=== PATIENT | female | born 1930 | race Caucasian/White ===

== ENCOUNTER 2016-11-20 13:18 | Emergency (ER) | payer MEDICARE, OTHER ==
[~2016-11-20] VITALS: Ht 172.7 cm; Wt 67.3 kg
[~2016-11-20 13:18] MED LIST: AMLO5TAB2 PO; ASCO-294 PO; BETA15CR38 TP; CALC500T9 PO; CHOL200047 PO; CIPR-231 PO; CYAN10008 PO; DARI15TA PO; DEXT1DRO8 BOTH_EYES; DICY20TA10 PO; HYDR-4150 PO; LEVE500T3 PO; LEVO50TA6 PO; LOM PO; LOPE2CAP PO; LOSA50TA37 PO; MOME17SP NS; MULT-666 PO; NEOM1OIN6 TP; OMEG-38 PO; PANT40TA2 PO; PRV40T PO; PSYL3.4P5 PO; WOOL454C TP
[2016-11-20 13:26] VITALS: BP 151/50; PULSE 85; RESP 16; O2SAT 95
--- NOTE | 2016-11-20 13:40 | ED.REPORT ---
HPI-Trauma Minor / Fall Date of Service Nov 20, 2016 ED Provider: History of Present Illness: sent from urgent care, fell on friday evening. unsure if she hit head, unwitnessed fall. now with increasing head pain, no nausea, dizzy this am. primary care is lisa on [address] is living independent at present hx of stroke 2010 left side Nursing Notes Stated Complaint: GLF,HIT HEAD Chief Complaint: General Complaint Nursing Notes Reviewed: Yes Allergies: Coded Allergies: Sulfa (Sulfonamide Antibiotics) (Verified Allergy, Unknown, 11/07/14) Scheduled Amlodipine (Amlodipine) 5 Mg Tablet 5 MG PO DAILY Ascorbate Calcium (Vitamin C) 500 Mg Tablet 500 MG PO DAILY Betamethasone/Propylene Glyc (Betamethasone Dp Aug 0.05% Crm) 15 Gm Cream..g. 15 GM TP BID Calcium Carbonate (Tums) 500 Mg Tab.chew 500 MG PO QAM Cholecalciferol (Vitamin D3) (Vitamin D3) 2,000 Unit Capsule 2,000 UNIT PO DAILY Ciprofloxacin (Cipro) 500 Mg Tablet 500 MG PO BID Cyanocobalamin (Vitamin B-12) (Vitamin B-12) 1,000 Mcg Tablet 1,000 MCG PO DAILY Darifenacin ER (Enablex) 15 Mg Tab.er.12h 15 MG PO DAILY Dicyclomine (Dicyclomine) 20 Mg Tablet 20 MG PO QID Hydrocodone/Acetaminophen (Flushing 5-325 Tablet) 1 Each Tablet 1-2 EACH PO Q4-6H Lanolin Alcohol/Mo/W.pet/Bowman (Eucerin Creme) 454 Gm Cream..g. 454 GM TP DAILY Levetiracetam (Levetiracetam) 500 Mg Tablet 500 MG PO BID Levothyroxine (Levothyroxine) 50 Mcg Tablet 50 MCG PO DAILY Losartan Potassium (Losartan Potassium) 50 Mg Tablet 50 MG PO DAILY Mometasone Furoate (Nasonex) 17 Gm [place].pump 1 SPRAY NS NOON, HS Multivitamin (Once Daily) 1 Each Tablet 1 EACH PO DAILY Neomy Sulf/Bacitrac Zn/Poly (Neosporin Ointment Packet) 1 Each Oint.pack 1 EACH TP TID [place]-3/Dha/Epa/Fish Oil (Fish Oil 1,000 mg Softgel) 1 Each Capsule 1 EACH PO DAILY Pantoprazole DR (Protonix) 40 Mg Tablet 40 MG PO DAILY Pravastatin (Pravachol) 40 Mg Tab 40 MG PO HS Psyllium Husk/Aspartame (Metamucil Fiber Singles Packet) 3.4 Gm Powd.pack 3.4 GM PO BID Scheduled PRN Dextran 70/Hypromellose/Pf (Artificial Tears Drops) 1 Each Droperette 1 DROP BOTH_EYES QID PRN PRN prn Diphenoxylate/Atropine (Diphenoxylate-Atrop 2.5-0.025) 2.5 Mg Tablet 2.5 MG PO Q6 PRN PRN For Diarrhea or Loose Stool Loperamide (Loperamide) 2 Mg Capsule 2 MG PO Q4H PRN PRN For Diarrhea or Loose Stool General Time Seen by MD: 13:40 Chief Complaint Fall Hx Obtained From: Patient Onset Occurred: 3 days ago Past Medical History Past Medical History Notes: PCP Dr. Fleming Stable meningioma Chronic sinusitis Past Medical History Recent admit 06/12/2014 for fall Urinary incontinence Reports: Hypertension, Stroke Past Surgical History Bunion surgery x2 Rotator cuff surgery right shoulder Reports: Appendectomy, Cataract surgery, Tonsillectomy Smoking History Former Smoker Social History Alcohol Use: Denies alcohol use Other Social History: [facility] Local [facility] Occupation lives at [facility] 11/20/2016 Ambulatory Status Independent Review of Systems Basic Review of Systems Cardiovascular: No chest pain, No dyspnea on exertion, No orthopnea, No parox noct dyspnea, No palpitations Hematologic: No bleeding, No bruising Psychiatric: Normal thought content Physical Exam Initial Vital Signs Vital Signs (First) Date Time Temp Pulse Resp B/P Pulse Ox O2 Delivery O2 Flow Rate FiO2 11/20/16 13:26 36.0 85 16 151/50 95 Room Air Initial VS: Reviewed, Vital signs normal Head / Eyes: Atraumatic, Normocephalic, PERRL ENT: Mucous membranes moist, Conjunctiva normal, No scleral icterus Respiratory: Breath sounds normal, Clear to auscultation, No respiratory distress Cardiovascular: Regular rate & rhythm, Heart sounds normal, Intact distal pulses Abdomen / GI: Soft, Non-tender, No guarding, No rebound, No distention Back: No CVA tenderness Lymphatic: No lymphadenopathy Extremities: Vascular intact, Neuro intact, No swelling, No tenderness Skin: Warm, Dry, No cyanosis Neurologic: Alert, Oriented, Nonfocal Psychiatric: Mood/affect normal, Behavior normal, Normal thought content General/Constitutional: Awake, Alert, No acute distress, Well appearing, Well developed, Well hydrated, Well nourished, Cooperative, Not toxic appearing Neck: Atraumatic, Supple, No meningismus, Full range of motion Head / Eyes: Atraumatic, Normocephalic, PERRL, EOMI ENT: Atraumatic, Airway patent, Mucous membranes moist, Pharynx NL Respiratory / Chest: Atraumatic, Breath sounds NL, Breath sounds = bilat, No respiratory distress Cardiovascular: Heart rate NL, Regular rhythm, Heart sounds NL, No gallop Abdomen: Atraumatic, Soft, Non-tender, McBurney's non-tender Back: Atraumatic, Inspection NL, Full range of motion Interpretation & Diagnostics Lab Results Interpretation Result Diagram: 11/20/16 1400 11/20/16 1400 Test 11/20/16 14:00 White Blood Count 4.9th/mm3 (3.8-10.1) Red Blood Count 4.47mil/mm3 (3.90-5.20) Hemoglobin 13.4g/dL (12.0-15.6) Hematocrit 40.1% (35.0-46.0) Mean Corpuscular Volume 89.7fL (81-100) Mean Corpuscular Hemoglobin 30.0pg (27.0-35.0) Mean Corpuscular Hemoglobin Concent 33.4% (32.0-37.0) Red Cell Distribution Width 12.9% (12.3-15.4) Platelet Count 180bil/L (150-400) Neutrophils (%) (Auto) 47.6% (40-74) Lymphocytes (%) (Auto) 33.0% (14-46) Monocytes (%) (Auto) 15.6% (4-12) Eosinophils (%) (Auto) 3.0% (0-5) Basophils (%) (Auto) 0.6% (0-3) Sodium Level 133mEq/L (134-144) Potassium Level 4.5mEq/L (3.5-5.2) Chloride Level 97mEq/L (97-108) Carbon Dioxide Level 22mmol/L (18-29) Blood Urea Nitrogen 17mg/dL (8-27) Creatinine 0.57mg/dL (0.57-1.00) Estimat Glomerular Filtration Rate 145mL/min (>59) Glucose Level 267mg/dL (60-99) Calcium Level 8.7mg/dL (8.5-10.1) Total Bilirubin 0.2mg/dL (0.0-1.2) Aspartate Amino Transf (AST/SGOT) 29U/L (0-50) Alanine Aminotransferase (ALT/SGPT) 25U/L (0-32) Alkaline Phosphatase 107U/L (25-165) Troponin T < 0.010ug/L (0.0-0.011) Total Protein 6.5g/dL (6.4-8.4) Albumin 3.6g/dL (3.4-5.0) X-Ray Chest Interpretation Chest Xray Interpretation: Caution: Report not yet finalized and possibly incomplete! PROCEDURE: X-RAY CHEST, TWO VIEWS ([id number]) INDICATIONS: fall TECHNIQUE: 2 views of the chest were acquired. COMPARISON: [facility], CT, CT ABD PELVIS W CON, 05/01/2015, 18:44. FINDINGS: Surgical changes and devices: None. Lungs and pleura: No pleural effusions or pneumothorax. Lungs are clear. Small hiatal hernia. Mediastinum: Mediastinal contours are normal. Heart size is normal. Bones and chest wall: No suspicious bony abnormalities. Soft tissues appear unremarkable. IMPRESSION: No acute cardiopulmonary disease. Dictated by: Pedro Pablo Carlos [facility] Interpreted: Yvette Mir MD on 11/20/2016 at 14:33 CT Head Interpretation PROCEDURE: CT BRAIN WITHOUT CONTRAST ([id number]) INDICATIONS: fall hit head TECHNIQUE: Noncontrast 4.5 mm thick angled axial sections acquired from the foramen magnum to the vertex, with coronal reformats. COMPARISON: MRI brain 06/27/2015 FINDINGS: Image quality: Excellent. CSF spaces: Basal cisterns are patent. No extra-axial fluid collections. The ventricles are symmetric in size and shape. Brain: No intracranial bleeds or masses. There is cerebral volume loss for age, with resultant ventricular and sulcal prominence. There are periventricular and deep white matter chronic small vessel ischemic changes. There is intracranial internal carotid artery atherosclerosis. Skull and face: Bony erosion in the right parietal bone is secondary to a 1.4 cm extra-axial soft tissue mass evident on previous MRI imaging and stable since May 2014 compatible with benign meningioma. Calvarium and visualized facial bones otherwise appear intact, without acute fracture. Sinuses: Right maxillary sinusitis, evident on prior MRI, has worsened with near-complete opacification of the sinus, small air-fluid level suggesting active disease. Remainder of sinuses and mastoids appear clear. IMPRESSION: 1. No acute posttraumatic changes. 2. Age-related atrophy and chronic deep white matter ischemic changes. 3. Acute and chronic right maxillary sinusitis, progressive since prior study. 4. Bony erosion of the inner table of the left parietal calvarium apparently by a stable meningioma. Dictated by: Junior Garcia M.D. on 11/20/2016 at 14:42 Approved by: Junior Garcia M.D. on 11/20/2016 at 14:53 CT C-Spine Interpretation INDICATIONS: fall hit head TECHNIQUE: Noncontrast 3 mm thick sections acquired from the skull base to the T4 level. Sagittal and coronal reformats were then constructed. For radiation dose reduction, the following was used: automated exposure control, adjustment of mA and/or kV according to patient size. COMPARISON: 01/11/2015 FINDINGS: Image quality: Excellent. Bones: Cervical lordosis is maintained. No fractures or dislocations. Degenerative disc disease most marked at C4-5, C5-6 and C6-7 with slight retrolisthesis at C4-5, unchanged. Degenerative narrowing preodontoid space. Visualized superior ribs are intact. Soft tissues: Prevertebral soft tissues are normal in thickness. No paravertebral hematomas. No apical pneumothoraces. IMPRESSION: 1. No fracture or dislocation. 2. 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 Dictated by: Junior Garcia M.D. on 11/20/2016 at 14:54 Approved by: Junior Garcia M.D. on 11/20/2016 at 14:57 Re-Eval/Medical Decision Med Decision/Clinical Course 86 year old female who lives in the [facility] presents for evualation of fall which occured on Friday. Patient denies nausea or vomiting. Patient with little recall of the event, unable to report what caused her to fall. EKG normal, troponin is negative. Brain CT shows acute on chronic sinusitis, and a stable meningioma. Cspine is normal, chest x-ray is normal. Discussed with patient the findings and the need to have increased help. To consider move to assisted living side. Discharge & Departure Impression: Primary Impression: Fall at [facility] Encounter type: initial encounter Qualified Code: W19.XXXA - Unspecified fall, initial encounter Additional Impressions: Acute sinusitis Sinusitis, chronic Benign meningioma Disposition: Home Patient Instructions: Sinusitis (ED) Additional Instructions: The CT of the brain does not show any bleeding or skull fracture. The CT of your neck shows arthritis but no fractures. The brain CT does show that you have chronic sinusitis but also have acute sinusitis. That may be contributing to your dizziness. Start augmentin 500 in the am and pm for 14 days. Please follow with Dr. Villarreal for recheck. The CT also shows that the meningioma is stable. You can follow with neurology as needed. Please call Dr. Garcia as needed. I would encourage you to transition to the assisted living section sooner than later. The chest x-ray is normal. Referrals: Deshawn Fleming DO (PCP) Shirin Andrea MD, Kevin C MD EDSupervising Provider for APC: Tony Ken DO copies to: Shirin Andrea MD; Deshawn Fleming DO; Harlan Villarreal MD, Sue ARNP Nov 20, 2016 13:40
[2016-11-20 14:13] LABS: BASOPHILS % (AUTO) 0.6 % (0-3); MONOCYTES % (AUTO) 15.6 % (4-12); Mean Corpuscular Volume 89.7 fL (81-100); NEUTROPHILS % (AUTO) 47.6 % (40-74); Platelet Count 180 bil/L (150-400)
--- NOTE | 2016-11-20 14:34 | DRSVH ---
PROCEDURE: X-RAY CHEST, TWO VIEWS ([id number]) INDICATIONS: fall TECHNIQUE: 2 views of the chest were acquired. COMPARISON: [facility], CT, CT ABD PELVIS W CON, 05/01/2015, 18:44. FINDINGS: Surgical changes and devices: None. Lungs and pleura: No pleural effusions or pneumothorax. Lungs are clear. Small hiatal hernia. Mediastinum: Mediastinal contours are normal. Heart size is normal. Bones and chest wall: No suspicious bony abnormalities. Soft tissues appear unremarkable. IMPRESSION: No acute cardiopulmonary disease. Dictated by: Pedro Pablo Carlos [facility] Interpreted: Yvette Mir MD on 11/20/2016 at 14:33 Transcribed by: SHOLA on 11/20/2016 at 14:33 Approved by: Yvette Mir MD, PhD on 11/20/2016 at 17:24
[2016-11-20 14:38] LABS: TROPONIN T < 0.010 ug/L (0.0-0.011)
--- NOTE | 2016-11-20 14:54 | DRSVH ---
PROCEDURE: CT BRAIN WITHOUT CONTRAST ([id number]) INDICATIONS: fall hit head TECHNIQUE: Noncontrast 4.5 mm thick angled axial sections acquired from the foramen magnum to the vertex, with c oronal reformats. COMPARISON: MRI brain 06/27/2015 FINDINGS: Image quality: Excellent. CSF spaces: Basal cisterns are patent. No extra-axial fluid collections. The ventricles are symmet paulino in size and shape. Brain: No intracranial bleeds or masses. There is cerebral volume loss for age, with resultant vent ricular and sulcal prominence. There are periventricular and deep white matter chronic small vessel ischemic changes. There is intracranial internal carotid artery atherosclerosis. Skull and face: Bony erosion in the right parietal bone is secondary to a 1.4 cm extra-axial soft ti ssue mass evident on previous MRI imaging and stable since May 2014 compatible with benign meni ngioma. Calvarium and visualized facial bones otherwise appear intact, without acute fracture. Sinuses: Right maxillary sinusitis, evident on prior MRI, has worsened with near-complete opacificati on of the sinus, small air-fluid level suggesting active disease. Remainder of sinuses and mastoids a ppear clear. IMPRESSION: 1. No acute posttraumatic changes. 2. Age-related atrophy and chronic deep white matter ischemic changes. 3. Acute and chronic right maxillary sinusitis, progressive since prior study. 4. Bony erosion of the inner table of the left parietal calvarium apparently by a stable meningioma. Dictated by: Junior Garcia M.D. on 11/20/2016 at 14:42 Approved by: Junior Garcia M.D. on 11/20/2016 at 14:53
--- NOTE | 2016-11-20 14:58 | DRSVH ---
PROCEDURE: CT CERVICAL SPINE WITHOUT CONTRAST ([id number]) INDICATIONS: fall hit head TECHNIQUE: Noncontrast 3 mm thick sections acquired from the skull base to the T4 level. Sagittal and coronal r eformats were then constructed. For radiation dose reduction, the following was used: automated exp osure control, adjustment of mA and/or kV according to patient size. COMPARISON: 01/11/2015 FINDINGS: Image quality: Excellent. Bones: Cervical lordosis is maintained. No fractures or dislocations. Degenerative disc disease most marked at C4-5, C5-6 and C6-7 with slight retrolisthesis at C4-5, unchanged. Degenerative narrowing preodontoid space. Visualized superior ribs are intact. Soft tissues: Prevertebral soft tissues are normal in thickness. No paravertebral hematomas. No ap ical pneumothoraces. IMPRESSION: 1. No fracture or dislocation. 2. 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 Dictated by: Junior Garcia M.D. on 11/20/2016 at 14:54 Approved by: Junior Garcia M.D. on 11/20/2016 at 14:57
[2016-11-20 15:18] VITALS: BP 146/54; PULSE 70; RESP 16; O2SAT 92
[2016-11-20 16:03] VITALS: BP 147/54; PULSE 69; RESP 16; O2SAT 94
== END 2016-11-20 16:04 | disposition home or self-care (01) ==
LOC: SED 13:18
DX: J01.90 Acute sinusitis, unspecified (principal); J32.9 Chronic sinusitis, unspecified; D32.9 Benign neoplasm of meninges, unspecified; S09.90XA Unspecified injury of head, initial encounter; W19.XXXA Unspecified fall, initial encounter; Y92.129 Unspecified place in nursing home as the place of occurrence of the external cause; Y93.89 Activity, other specified; Y99.8 Other external cause status; R42 Dizziness and giddiness; I10 Essential (primary) hypertension; Z86.73 Personal history of transient ischemic attack (TIA), and cerebral infarction without residual deficits; Z87.891 Personal history of nicotine dependence; Z88.2 Allergy status to sulfonamides